=== PATIENT | female | born 2000 | race Caucasian/White ===

== ENCOUNTER → 2022-06-19 | Emergency (ER) | payer OTHER ==
[~2022-06-19] VITALS: Ht 170.2 cm; Wt 52.2 kg
[~2022-06-19] MED LIST: AZITHROMYCIN 100 MG/5 ML SUSPENSION ONE
[2022-06-19 17:30] VITALS: BP_SYST 131
--- NOTE | 2022-06-19 18:20 | NUR ---
Patient left without being seen.
== END | disposition left against medical advice (07) ==
LOC: SED 16:53
DX: R51.9 Headache, unspecified (principal); R42 Dizziness and giddiness; Z53.21 Procedure and treatment not carried out due to patient leaving prior to being seen by health care provider
CPT/HCPCS: Q0144